=== PATIENT | female | born 1955 | race Caucasian/White ===

== ENCOUNTER 2016-07-28 14:23 | Inpatient (IN) | payer OTHER ==
[~2016-07-28] VITALS: Ht 165.1 cm; Wt 75.0 kg
[2016-07-28] MEDS ORDERED: AMOX500C (14:33)
[2016-07-28] MEDS ORDERED: NS 1,000 ML IV SCH ×2 (14:52→19:45)
[2016-07-28] MEDS ORDERED: ACETAMINOPHEN TAB 650MG DOSE (2X325MG) PO ONE (15:00)
[2016-07-28 15:38] LABS: BASO % 0.2 % (0.0-1.0); EOS # 0.2 K/mm3 (0.0-0.50); EOS % 0.7 % (0.0-3.0); LARGE UNSTAINED CELL # 0.2 K/mm3 (0.0-0.4); LARGE UNSTAINED CELL % 0.8 % (0.0-4.0); LYMPH # 0.6 K/mm3 (1.5-4.5); LYMPH % 2.6 % (24.0-44.0); MEAN CORPUSCULAR HEMOGLOBIN 32.2 pg (27.0-33.0); MEAN CORPUSCULAR HGB CONC 32.9 g/dl (32.0-36.5); MEAN CORPUSCULAR VOLUME 97.7 fl (80.0-96.0); MONO # 0.4 K/mm3 (0.0-0.8); MONO % 1.7 % (0.0-5.0); NEUTROPHILS # 20.2 K/mm3 (1.8-7.7); NEUTROPHILS % 94.1 % (36.0-66.0); PLATELET COUNT, AUTOMATED 269 k/mm3 (150-450); RED CELL DISTRIBUTION WIDTH 12.1 % (11.5-14.5); WHITE BLOOD COUNT 21.5 K/mm3 (4.0-10.0)
[2016-07-28 15:46] LABS: INR 1.21
[2016-07-28 16:04] LABS: CONTROL LINE MONO INT CTR LINE PRESENT
[2016-07-28 16:11] LABS: ALBUMIN 3.3 GM/DL (3.2-5.2); ALBUMIN/GLOBULIN RATIO 0.65 (1.00-1.93); ALKALINE PHOSPHATASE 137 U/L (45-117); ALT/SGPT 38 U/L (12-78); ANION GAP 11 MEQ/L (8-16); AST/SGOT 23 U/L (15-37); BILIRUBIN,DIRECT 0.3 MG/DL (0.0-0.2); BILIRUBIN,TOTAL 0.8 MG/DL (0.2-1.0); BLOOD UREA NITROGEN 20 MG/DL (7-18); CARBON DIOXIDE LEVEL 22 MEQ/L (21-32); CHLORIDE LEVEL 102 MEQ/L (98-107); CREATININE FOR GFR 1.07 MG/DL (0.55-1.02); GLOMERULAR FILTRATION RATE 55.3 (>45); GLUCOSE, FASTING 151 MG/DL (80-110); POTASSIUM SERUM 4.2 MEQ/L (3.5-5.1); SODIUM LEVEL 135 MEQ/L (136-145); TOTAL PROTEIN 8.4 GM/DL (6.4-8.2)
[2016-07-28] MEDS ORDERED: IBUPOTC PO (17:58)
[2016-07-28] MEDS ORDERED: VITMTA PO (17:58)
[2016-07-28] MEDS ORDERED: ACET50TAOT PO (17:58)
--- NOTE | 2016-07-28 19:14 | REP ---
CT brain without contrast: History: Fever and headache. No comparison brain imaging. CT findings: Digital lateral assistant real estate manager view is unremarkable. Bone window settings demonstrate an intact bony calvarium. Visualized paranasal sinuses are clear. On soft tissue window settings, the lateral, 3rd and 4th ventricles are normal in size and position. There is some physiologic calcification of the basal ganglia bilaterally. There is no evidence of intracranial hemorrhage. No infarct, mass, or extra-axial fluid collection is seen. Monson white differentiation pattern is normal. Impression: No acute intracranial lesion. Physiologic basal ganglia calcification noted incidentally. Otherwise negative. Signed by Hemanth Garcia MD 07/28/2016 07:45 P
[2016-07-28] MEDS ORDERED: ACETAMINOPHEN TAB 650MG DOSE (2X325MG) PO PRN (19:45)
[2016-07-28] MEDS ORDERED: ONDANSETRON 4MG/2ML VIAL (J2405) IV PRN (19:45)
[2016-07-28] MEDS ORDERED: predniSONE 10 MG TAB PO ONE (20:15)
--- NOTE | 2016-07-28 20:27 | HPEPDOC ---
Medical History and Physical Date of Admission 07/28/16 History and Physical PRIMARY CARE PROVIDER: ATTENDING: Dr. Alvarenga CHIEF COMPLAINT: Rash HISTORY OF PRESENT ILLNESS: This is a 58-year-old female past medical history of ulcerative colitis (not on any meds) who presents complaining of a rash. Patient states that she went to her oral surgeon for a left tooth extraction last Thursday, was given amoxicillin, and started to develop the rash on Thursday evening. Patient also complained of sore throats and nonproductive cough. Patient states the rash started on her palms spread to her chest, back, and then legs. Complained of low-grade temperature 100.2. Chills. Nausea. No diarrhea. Patient had spoken to her dentist on Thursday and was told to stop the antibiotic yesterday. Patient was also prescribed Benadryl. Patient states that since then the rash has progressively worsened for which she went to the urgent care center and referred to [facility]. Patient denies any chest pain/shortness of breath/palpitations. No nausea/ vomiting/abdominal pain this time. No prior rashes. No prior allergies. Patient's had no other medication exposures. No changes in her soaps or linen. No new perfumes. No sick contacts or recent travels. PAST MEDICAL HISTORY:As per HPI PAST SURGICAL HISTORY: Ileostomy, left carpal tunnel. SOCIAL HISTORY: Denies tobacco, alcohol, illicit drug use. FAMILY HISTORY:Non contributory ALLERGIES: Please see below. REVIEW OF SYSTEMS: HEENT: Denies sore throat/headache CARDIOVASCULAR: Denies chest pain/palpitations RESPIRATORY: No shortness of breath/cough GASTROINTESTINAL: denies nausea/vomiting GENITOURINARY: Denies dysuria/urinary urgency. MUSCULOSKELETAL: Denies myalgias/arthralgias NEUROLOGICAL: Denies any focal weakness Rest of ROS negative. HOME MEDICATIONS: Please see below. PHYSICAL EXAMINATION: Vitals: (see below) General: No acute distress, laying comfortably in bed. HEENT: Dry mucous membranes. No mucosal ulcers Neck: No JVD or lymphadenopathy Cardiac: RRR, No murmurs Pulm: Clear to auscultation b/l. No wheezing, rhonchi Abd: NT/ND + BS Ext: No edema or cyanosis Skin: Diffuse palpable purpura rash involving palms, arms, legs, chest, back. Blanchable. Tender. No areas of cellulitis. No involvement of soles. LABORATORY DATA: See below. IMAGING: CT Head 07/28/16 Impression: No acute intracranial lesion. Physiologic basal ganglia calcification noted incidentally. Otherwise negative. MICROBIOLOGY: Please see below. ASSESSMENT/PLAN: 1. Diffuse rash likely drug reaction from amoxicillin. Strep/influenza negative. The patient does have leukocytosis, mild elevation her lactic acid, elevated ESR. No source of infection. We'll hold off on antibiotics at this time. Started on prednisone and Benadryl. Also started on IV fluids. No mucosal ulcerations. No eosinophils. Questionable whether the patient does have a vasculitic picture given the history of ulcerative colitis. If rash does not improve, consider dermatology/infectious disease consult tomorrow for a possible biopsy. Chest x-ray negative. No dysuria. No diarrhea. No abdominal pain. We'll monitor CBC, ESR, CRP. F/u blood/sputum cx. 2. History of ulcerative colitis- controlled off medications DVT prophylaxis- out of bed. Patient will be followed by Dr. Amy Alvarenga 07/29/16 at 7 AM. Vital Signs Vital Signs Date Time Temp Pulse Resp B/P (MAP) Pulse Ox O2 Delivery O2 Flow Rate FiO2 07/28/16 18:07 99.5 16 07/28/16 17:53 88 94 07/28/16 17:35 99/73 (82) 07/28/16 14:33 Room Air Laboratory Data Labs 24H Laboratory Tests 2 07/28/16 15:21: White Blood Count 21.5H, Red Blood Count 4.76, Hemoglobin 15.3, Hematocrit 46.5 , Mean Corpuscular Volume 97.7H, Mean Corpuscular Hemoglobin 32.2, Mean Corpuscular Hemoglobin Concent 32.9, Red Cell Distribution Width 12.1, Platelet Count 269, Neutrophils (%) (Auto) 94.1H, Lymphocytes (%) (Auto) 2.6L, Monocytes (%) (Auto) 1.7, Eosinophils (%) (Auto) 0.7, Basophils (%) (Auto) 0.2, Neutrophils # (Auto) 20.2H, Lymphocytes # (Auto) 0.6L, Monocytes # (Auto) 0.4, Eosinophils # (Auto) 0.2, Basophils # (Auto) 0.0, Large Unclassified Cells % 0.8 , Large Unclassified Cells # 0.2, Prothrombin Time 15.4H, Prothromb Time International Ratio 1.21, Activated Partial Thromboplast Time 33.5, Anion Gap 11 , Glomerular Filtration Rate 55.3, Lactic Acid Level 2.5*H, Calcium Level 10.0, Aspartate Amino Transf (AST/SGOT) 23, Alanine Aminotransferase (ALT/SGPT) 38, Alkaline Phosphatase 137H, Total Bilirubin 0.8, Direct Bilirubin 0.3H, Total Protein 8.4H, Albumin 3.3, Albumin/Globulin Ratio 0.65L, Syphilis Serology NONREACTIVE, Monoscreen NEGATIVE 07/28/16 16:28: Urine Appearance CLOUDYH, Urine Color NICOLASA, Urine pH 6.0, Urine Specific [place] 1.020, Urine Protein 1+H, Urine Glucose (UA) NEGATIVE, Urine Ketones TRACEH, Urine Urobilinogen 0.2, Urine Bilirubin NEGATIVE, Urine Leukocyte Esterase 2+H, Urine Blood 1+H, Urine Nitrite NEGATIVE, Urine WBC (Auto) 74H, Urine RBC (Auto) 14H, Urine Hyaline Casts (Auto) 2, Urine Bacteria (Auto) 1+H, Urine Squamous Epithelial Cells 1, Urine Amorphous Sediment SMALLH, Urine Mucus (Auto) SMALL, Urine Sperm (Auto) 07/28/16 19:49: CBC/BMP Laboratory Tests 07/28/16 15:21 Red Blood Count 4.76, Mean Corpuscular Volume 97.7 H, Mean Corpuscular Hemoglobin 32.2, Mean Corpuscular Hemoglobin Concent 32.9, Red Cell Distribution Width 12.1, Neutrophils (%) (Auto) 94.1 H, Lymphocytes (%) (Auto) 2.6 L, Monocytes (%) (Auto) 1.7, Eosinophils (%) (Auto) 0.7, Basophils (%) (Auto ) 0.2, Neutrophils # (Auto) 20.2 H, Lymphocytes # (Auto) 0.6 L, Monocytes # ( Auto) 0.4, Eosinophils # (Auto) 0.2, Basophils # (Auto) 0.0 Microbiology Microbiology 07/28/16 Blood Culture, Received Pending 07/28/16 Blood Culture, Received Pending 07/28/16 Group A Streptococcus Screen (ARGELIA) - Final, Resulted 07/28/16 Group A Streptococcus Screen (ARGELIA), Resulted Pending 07/28/16 Influenza Virus Type A Antigen - Final, Complete 07/28/16 Influenza Virus Type B Antigen - Final, Complete 07/28/16 Urine Culture, Received Pending Home Medications Scheduled Multivitamins *[facility] STOCKED* (Thera M Plus *[facility] STOCKED*) 1 Tab Tab, 1 TAB PO DAILY Scheduled PRN Acetaminophen (Acetaminophen) 500 Mg Tab, 500 MG PO for PAIN Ibuprofen (Ibuprofen) 200 Mg Tab, 200 MG PO for PAIN Allergies Coded Allergies: No Known Drug Allergy (Verified Allergy, Unknown, 07/28/16) ERIN YAP MD July 28, 2016 20:27
[2016-07-28] MEDS ORDERED: IBUPROFEN 200 MG TAB PO PRN (20:30)
[2016-07-28 22:47] VITALS: BP 140/69
[2016-07-28] MEDS: diphenhydrAMINE INJ 50MG/ML VIAL (J1200) IV SCH (23:58)
[2016-07-29] VITALS (8 sets, daily range): BP systolic 110–122; BP diastolic 58–72
[2016-07-29] MEDS: diphenhydrAMINE INJ 50MG/ML VIAL (J1200) IV SCH ×4 (04:10→19:31)
[2016-07-29 05:52] LABS: BASO % 0.1 % (0.0-1.0); EOS % 0.2 % (0.0-3.0); LARGE UNSTAINED CELL # 0.2 K/mm3 (0.0-0.4); LARGE UNSTAINED CELL % 0.8 % (0.0-4.0); LYMPH # 0.7 K/mm3 (1.5-4.5); LYMPH % 2.8 % (24.0-44.0); MEAN CORPUSCULAR HEMOGLOBIN 33.5 pg (27.0-33.0); MEAN CORPUSCULAR VOLUME 98.7 fl (80.0-96.0); MONO # 0.5 K/mm3 (0.0-0.8); NEUTROPHILS # 24.6 K/mm3 (1.8-7.7); NEUTROPHILS % 94.1 % (36.0-66.0); PLATELET COUNT, AUTOMATED 270 k/mm3 (150-450); RED CELL DISTRIBUTION WIDTH 12.1 % (11.5-14.5); WHITE BLOOD COUNT 26.1 K/mm3 (4.0-10.0)
--- NOTE | 2016-07-29 06:11 | REP ---
Chest x-ray: Two views. History: Fever. Findings: EKG monitoring electrodes overlie the chest. The lungs are symmetrically aerated and clear. There are sutures in the upper abdomen. Left upper quadrant calcifications are noted. The pleural angles are sharp. Heart is not enlarged. The aorta is somewhat tortuous. There are mild degenerative changes in the thoracic spine. Impression: No active cardiopulmonary disease. Signed by Hemanth Garcia MD 07/29/2016 08:23 A
[2016-07-29 06:16] LABS: ALBUMIN 2.7 GM/DL (3.2-5.2); ALBUMIN/GLOBULIN RATIO 0.61 (1.00-1.93); ALKALINE PHOSPHATASE 119 U/L (45-117); ALT/SGPT 29 U/L (12-78); ANION GAP 9 MEQ/L (8-16); AST/SGOT 18 U/L (15-37); BILIRUBIN,TOTAL 0.5 MG/DL (0.2-1.0); BLOOD UREA NITROGEN 19 MG/DL (7-18); CALCIUM LEVEL 8.5 MG/DL (8.8-10.2); CARBON DIOXIDE LEVEL 22 MEQ/L (21-32); CHLORIDE LEVEL 108 MEQ/L (98-107); CREATININE FOR GFR 0.82 MG/DL (0.55-1.02); GLOMERULAR FILTRATION RATE > 60.0 (>45); GLUCOSE, FASTING 123 MG/DL (80-110); SODIUM LEVEL 139 MEQ/L (136-145); TOTAL PROTEIN 7.1 GM/DL (6.4-8.2)
[2016-07-29 07:29] LABS: ERYTHROCYTE SEDIMENTATION RATE 70 mm/hr (0-30)
[2016-07-29] MEDS: predniSONE 10 MG TAB PO SCH (08:54)
--- NOTE | 2016-07-29 11:53 | IPNPDOC ---
Subjective Date Seen The patient was seen on 07/29/16. Subjective Chief Complaint/HPI The patient is a 60-year-old female admitted with a reason for visit of Fever; Rash. Events since last encounter pt seen and examined, still has diffuse rash, not pruritic in nature, pt states it has not improved, she had a tmax of 100.3 overnight Constitutional: Reports: Fever Skin: Reports: Rash Objective Physical Examination General Exam: Positive: Alert, No Acute Distress Eye Exam: Positive: PERRLA, Conjunctiva & lids normal ENT Exam: Positive: Atraumatic Chest Exam: Positive: Clear to auscultation, Normal air movement Heart Exam: Positive: Rate Normal Abdomen Exam: Positive: Normal bowel sounds, Soft Extremity Exam: Positive: Normal pulses, Negative: Clubbing, Cyanosis, Edema Skin Exam: Positive: Rash Assessment /Plan Problems (1) Rash Status: Acute Problem Text: * pt was started on amoxicillin thursdayjuly 19 for dental work, she took 6 days of it and then last Thursdayjuly 26 she developed a rash that started over her hands then became diffuse * she called her dentist who told her to stop amoxicillin which she stopped on thursday and started taking benadryl, her rash worsed and she presented to the ER * she has been on prednisone, benadryl but still rash isn't improving * pt also has elevated CRP, SED rate and low grade temps with Tmax of 100.3 * will consult dr rodriguez (2) Fever Status: Acute Problem Text: * unkown etiology * maybe due to drug reaction * abnormal UA * blood/urine cultures pending * ID consult (3) History of ulcerative colitis Status: Chronic Response to Treatment: Stable Problem Text: * pt is on no medication regularly and sees no doctors Plan/VTE VTE Prophylaxis Ordered?: Yes VS, I&O, 24H, Fishbone Vital Signs/I&O Vital Signs Date Time Temp Pulse Resp B/P (MAP) Pulse Ox O2 Delivery O2 Flow Rate FiO2 07/29/16 11:42 98.9 79 18 110/66 (81) 94 Room Air I&O- Last 24 Hours up to 6 AM 07/29/16 05:59 Intake Total 80 ml Output Total 600 ml Balance -520 ml Laboratory Data 24H LABS Laboratory Tests 2 07/28/16 15:21: White Blood Count 21.5H, Red Blood Count 4.76, Hemoglobin 15.3, Hematocrit 46.5 , Mean Corpuscular Volume 97.7H, Mean Corpuscular Hemoglobin 32.2, Mean Corpuscular Hemoglobin Concent 32.9, Red Cell Distribution Width 12.1, Platelet Count 269, Neutrophils (%) (Auto) 94.1H, Lymphocytes (%) (Auto) 2.6L, Monocytes (%) (Auto) 1.7, Eosinophils (%) (Auto) 0.7, Basophils (%) (Auto) 0.2, Neutrophils # (Auto) 20.2H, Lymphocytes # (Auto) 0.6L, Monocytes # (Auto) 0.4, Eosinophils # (Auto) 0.2, Basophils # (Auto) 0.0, Large Unclassified Cells % 0.8 , Large Unclassified Cells # 0.2, Prothrombin Time 15.4H, Prothromb Time International Ratio 1.21, Activated Partial Thromboplast Time 33.5, Anion Gap 11 , Glomerular Filtration Rate 55.3, Lactic Acid Level 2.5*H, Calcium Level 10.0, Aspartate Amino Transf (AST/SGOT) 23, Alanine Aminotransferase (ALT/SGPT) 38, Alkaline Phosphatase 137H, Total Bilirubin 0.8, Direct Bilirubin 0.3H, Total Protein 8.4H, Albumin 3.3, Albumin/Globulin Ratio 0.65L, Syphilis Serology NONREACTIVE, Monoscreen NEGATIVE 07/28/16 16:28: Urine Appearance CLOUDYH, Urine Color NICOLASA, Urine pH 6.0, Urine Specific [place] 1.020, Urine Protein 1+H, Urine Glucose (UA) NEGATIVE, Urine Ketones TRACEH, Urine Urobilinogen 0.2, Urine Bilirubin NEGATIVE, Urine Leukocyte Esterase 2+H, Urine Blood 1+H, Urine Nitrite NEGATIVE, Urine WBC (Auto) 74H, Urine RBC (Auto) 14H, Urine Hyaline Casts (Auto) 2, Urine Bacteria (Auto) 1+H, Urine Squamous Epithelial Cells 1, Urine Amorphous Sediment SMALLH, Urine Mucus (Auto) SMALL, Urine Sperm (Auto) 07/28/16 19:49: Lactic Acid Followup at 4 Hours 2.2*H 07/29/16 05:18: White Blood Count 26.1H, Red Blood Count 4.16, Hemoglobin 13.9, Hematocrit 41.1 , Mean Corpuscular Volume 98.7H, Mean Corpuscular Hemoglobin 33.5H, Mean Corpuscular Hemoglobin Concent 34.0, Red Cell Distribution Width 12.1, Platelet Count 270, Neutrophils (%) (Auto) 94.1H, Lymphocytes (%) (Auto) 2.8L, Monocytes (%) (Auto) 2.0, Eosinophils (%) (Auto) 0.2, Basophils (%) (Auto) 0.1, Neutrophils # (Auto) 24.6H, Lymphocytes # (Auto) 0.7L, Monocytes # (Auto) 0.5, Eosinophils # (Auto) 0.0, Basophils # (Auto) 0.0, Large Unclassified Cells % 0.8 , Large Unclassified Cells # 0.2, Anion Gap 9, Glomerular Filtration Rate > 60.0 , Calcium Level 8.5L, Aspartate Amino Transf (AST/SGOT) 18, Alanine Aminotransferase (ALT/SGPT) 29, Alkaline Phosphatase 119H, Total Bilirubin 0.5, Total Protein 7.1, Albumin 2.7L, Albumin/Globulin Ratio 0.61L, Erythrocyte Sedimentation Rate 70H, Blood Urea Nitrogen 19H, Creatinine 0.82, Sodium Level 139, Potassium Level 4.0, Chloride Level 108H, Carbon Dioxide Level 22, Magnesium Level 2.0, C-Reactive Protein, Quantitative 14.20H CBC/BMP Laboratory Tests 07/28/16 15:21 Red Blood Count 4.76, Mean Corpuscular Volume 97.7 H, Mean Corpuscular Hemoglobin 32.2, Mean Corpuscular Hemoglobin Concent 32.9, Red Cell Distribution Width 12.1, Neutrophils (%) (Auto) 94.1 H, Lymphocytes (%) (Auto) 2.6 L, Monocytes (%) (Auto) 1.7, Eosinophils (%) (Auto) 0.7, Basophils (%) (Auto ) 0.2, Neutrophils # (Auto) 20.2 H, Lymphocytes # (Auto) 0.6 L, Monocytes # ( Auto) 0.4, Eosinophils # (Auto) 0.2, Basophils # (Auto) 0.0 07/29/16 05:18 Red Blood Count 4.16, Mean Corpuscular Volume 98.7 H, Mean Corpuscular Hemoglobin 33.5 H, Mean Corpuscular Hemoglobin Concent 34.0, Red Cell Distribution Width 12.1, Neutrophils (%) (Auto) 94.1 H, Lymphocytes (%) (Auto) 2.8 L, Monocytes (%) (Auto) 2.0, Eosinophils (%) (Auto) 0.2, Basophils (%) (Auto ) 0.1, Neutrophils # (Auto) 24.6 H, Lymphocytes # (Auto) 0.7 L, Monocytes # ( Auto) 0.5, Eosinophils # (Auto) 0.0, Basophils # (Auto) 0.0, Calcium Level 8.5 L , Aspartate Amino Transf (AST/SGOT) 18, Alanine Aminotransferase (ALT/SGPT) 29, Alkaline Phosphatase 119 H, Total Bilirubin 0.5, Total Protein 7.1, Albumin 2.7 L Microbiology Microbiology 07/28/16 Blood Culture, Received Pending 07/28/16 Blood Culture, Received Pending 07/28/16 Group A Streptococcus Screen (ARGELIA) - Final, Complete 07/28/16 Group A Streptococcus Screen (ARGELIA) - Final, Complete 07/28/16 Influenza Virus Type A Antigen - Final, Complete 07/28/16 Influenza Virus Type B Antigen - Final, Complete 07/28/16 Urine Culture, Received Pending JENNIFER MCGILL DO July 29, 2016 11:53
[2016-07-29] MEDS ORDERED: SLF 3 ML SYR IV PRN (14:00)
[2016-07-29] MEDS: SLF 3 ML SYR IV SCH ×2 (14:02→21:39)
[2016-07-29] MEDS: CLOBETASOL PROPIONATE EMOLLIENT 0.05% CR 60 GM TOP SCH (21:38)
[2016-07-29] MEDS: HYDROCORTISONE 1% OINTMENT 30GM EXT SCH (21:38)
[2016-07-30] MEDS: diphenhydrAMINE INJ 50MG/ML VIAL (J1200) IV SCH ×2 (02:58→08:04)
[2016-07-30 03:08] VITALS: BP 121/72
[2016-07-30 05:40] LABS: BASO # 0.1 K/mm3 (0.0-0.2); BASO % 0.2 % (0.0-1.0); EOS # 0.1 K/mm3 (0.0-0.50); EOS % 0.5 % (0.0-3.0); LARGE UNSTAINED CELL # 0.3 K/mm3 (0.0-0.4); LARGE UNSTAINED CELL % 1.1 % (0.0-4.0); LYMPH # 1.7 K/mm3 (1.5-4.5); LYMPH % 5.1 % (24.0-44.0); MEAN CORPUSCULAR HEMOGLOBIN 32.9 pg (27.0-33.0); MEAN CORPUSCULAR HGB CONC 33.8 g/dl (32.0-36.5); MEAN CORPUSCULAR VOLUME 97.3 fl (80.0-96.0); MONO # 1.1 K/mm3 (0.0-0.8); MONO % 3.8 % (0.0-5.0); NEUTROPHILS # 24.4 K/mm3 (1.8-7.7); NEUTROPHILS % 89.4 % (36.0-66.0); PLATELET COUNT, AUTOMATED 283 k/mm3 (150-450); RED CELL DISTRIBUTION WIDTH 12.5 % (11.5-14.5); WHITE BLOOD COUNT 27.3 K/mm3 (4.0-10.0)
[2016-07-30 05:56] LABS: ALBUMIN 2.5 GM/DL (3.2-5.2); ALBUMIN/GLOBULIN RATIO 0.58 (1.00-1.93); ALKALINE PHOSPHATASE 123 U/L (45-117); ALT/SGPT 33 U/L (12-78); ANION GAP 8 MEQ/L (8-16); AST/SGOT 26 U/L (15-37); BILIRUBIN,TOTAL 0.4 MG/DL (0.2-1.0); BLOOD UREA NITROGEN 24 MG/DL (7-18); CALCIUM LEVEL 8.3 MG/DL (8.8-10.2); CARBON DIOXIDE LEVEL 24 MEQ/L (21-32); CHLORIDE LEVEL 110 MEQ/L (98-107); CREATININE FOR GFR 0.88 MG/DL (0.55-1.02); GLOMERULAR FILTRATION RATE > 60.0 (>45); GLUCOSE, FASTING 87 MG/DL (80-110); POTASSIUM SERUM 4.1 MEQ/L (3.5-5.1); SODIUM LEVEL 142 MEQ/L (136-145); TOTAL PROTEIN 6.8 GM/DL (6.4-8.2)
[2016-07-30] MEDS: SLF 3 ML SYR IV SCH (06:35)
[2016-07-30 06:44] LABS: ERYTHROCYTE SEDIMENTATION RATE 15 mm/hr (0-30)
[2016-07-30 08:00] VITALS: BP 117/65
[2016-07-30] MEDS: CLOBETASOL PROPIONATE EMOLLIENT 0.05% CR 60 GM TOP SCH (08:04)
[2016-07-30] MEDS: HYDROCORTISONE 1% OINTMENT 30GM EXT SCH (08:04)
[2016-07-30] MEDS: predniSONE 10 MG TAB PO SCH (08:04)
[2016-07-30] MEDS ORDERED: HYDR1OI EXT (08:52)
[2016-07-30] MEDS ORDERED: CLOB5CR TOP (08:52)
--- NOTE | 2016-07-30 11:17 | CR ---
DATE OF CONSULTATION: 07/29/2016 CONSULTATION REPORT FOR: Dr. Alvarenga REASON FOR CONSULTATION: For evaluation of fever and rash. HISTORY OF PRESENT ILLNESS: Mrs. Strickland is a pleasant 60-year-old female with no significant past medical history except for ulcerative colitis status post colectomy many years ago, over 40 years ago, who presents with a rash and a fever. The patient had a left upper molar extraction last Thursday done by Dr. Borden. The patient was given amoxicillin as there was an infection in the tooth. She developed a rash about five days after starting antibiotic which was on Thursday. She called the dentist who told her to stop taking the antibiotic, but then she developed a sore throat and a cough. The rash got worse involving her palms, chest, back, and legs. It was pruritic. She had a low-grade temperature with chills and nausea but no vomiting or diarrhea. The patient came to the emergency room. She had a fever, a white count of 21,000, and therefore was admitted to the hospital. The patient states that since the rash had progressively worsened, she got worried and went to the urgent care who sent her to [facility] (ER) . She had no chest pain. No shortness of breath. She had some itching around the eyes but no involvement of the eyes. She has no oral ulcers. The patient has no prior penicillin allergy. She does not take medication. She does not have a primary care provider. She had no change in perfumes or soaps. PAST MEDICAL HISTORY: Ulcerative colitis status post colectomy, had an ileostomy many years ago. PAST SURGICAL HISTORY: Colectomy and ileostomy, left carpal tunnel surgery. SOCIAL HISTORY: No tobacco, alcohol or illicit drug use. She lives alone. FAMILY HISTORY: Nonrevealing. ALLERGIES: AMOXICILLIN. REVIEW OF SYSTEMS: She had a sore throat but no headache or neck stiffness. No sinus tenderness. No chest pain or palpitations. No shortness of breath. She had a nonproductive cough. She had some nausea but no vomiting, dysuria, or urinary urgency. MEDICATIONS: - prednisone 70 mg by mouth daily started on 07/29/2016 - Benadryl 25 mg IV every six hours - Motrin 200 mg by mouth every four hours as needed for fevers - Tylenol as needed - Zofran as needed The patient received prednisone 30 mg times one dose on 07/28/2016. IMAGING STUDIES: Head CT did not show any acute finding but there was physiologic basal ganglia classification noted. Chest x-ray showed no acute infiltrate. PHYSICAL EXAMINATION: On physical examination, pleasant female in no acute distress. Temperature is 100, pulse 87, respirations 18, blood pressure 122/61, oxygen saturation 95% on room air. HEART: Normal S1, S2. No murmurs, rubs or gallops. LUNGS: Clear. No wheezes, rales, or rhonchi. ABDOMEN: Soft, nontender. No visceromegaly. BACK: No costovertebral angle (CVA) or lumbosacral tenderness. EXTREMITIES: No clubbing, cyanosis or edema. No calf tenderness. HEENT: Oropharynx dry mucosa but no ulcers. Lips are slightly dry but no lesions. Periorbital rash with dryness and scaling. Eyes are not erythematous. NEUROLOGIC: Examination is intact. SKIN: She has vesicular, warm rash involving the whole body, especially is confluent over the back, more circular on the arms and abdomen, involving the thighs it is blanching. There is no purpura. There are no oral lesions and no eye lesions. LABORATORY DATA: White count was 21,000 on admission, 26,000 today after she received steroids, hemoglobin 13.9, hematocrit 41.1, platelets 270, 94% neutrophils, 2% lymphocytes, 2% monocytes, ESR 70. Sodium 139, potassium 4, chloride 108, bicarbonate 22, BUN 19, creatinine 0.82, glucose 123, lactic acid was 2.5 on admission, 2.2 four-hour followup, calcium 8.5, magnesium 2, bilirubin 0.5, AST 18, ALT 29, alkaline phosphatase 119, CRP 14.2, total protein 7.1, albumin 7.1. Group A Streptococcus was negative. Influenza was negative. Blood cultures two sets are negative and urine culture is negative. Urinalysis had 74 white cells and 14 red cells with +2 leukocyte esterase. IMPRESSION: This is a 60-year-old female who went to the dentist about a week prior to admission, was given amoxicillin for a dental infection, developed five days later a diffuse macular rash with fever, sore throat, came to the emergency room, had significant leukocytosis which has worsened on steroids, but the patient clinically is doing well except for the fever. She denies any sore throat currently or cough. Workup has been fairly negative except for elevated white count and sedimentation rate. The patient has been on prednisone, although she does not have any lung involvement wheezing, or shortness of breath, she has diffuse skin involvement. PLAN: Start hydrocortisone ointment around her eyes twice a day, clobetasol ointment on her skin. We could discontinue prednisone. I did discuss the case with Dr. Melissa Loera and sent her some pictures of the rash after consent from the patient. I have discussed the case with Dr. Alvarenga. If the patient is afebrile tomorrow, she could be discharged home with steroid creams. Continue Benadryl.
--- NOTE | 2016-07-30 22:00 | DSES ---
DATE OF ADMISSION: 07/28/2016 DATE OF DISCHARGE: 07/30/2016 REASON FOR ADMISSION: 1. Rash and fever. 2. History of ulcerative colitis. HISTORY OF PRESENT ILLNESS: The patient is a 60-year-old female with no known primary care provider, presented to the emergency room complaining of a rash that started on Thursday a day prior to arrival. The patient stated that a week ago she had a tooth extraction and was given amoxicillin, she had it for 6 days and started to develop a rash Thursday evening. The patient contacted her dentist who told her to stop the antibiotics. However, the following day rash continued to worsen, starting with her hands and then spread all over her body. She also started having low grade temperatures at that time. She went to urgent care clinic who referred her to the hospital. In the hospital the patient was started on prednisone. She was given Benadryl and admitted under hospitalist service. HOSPITAL COURSE: The following day the patient still had fever, was nonpruritic, she had no respiratory symptoms. No other complaints. She had a maximum temperature (T-max) of 100.3. Dr. Mccarthy was consulted. She had evaluated the patient and felt that her rash was likely secondary to a drug reaction as well as her fever. She was started on hydrocortisone ointment around her eyes and clobetasol ointment for her skin. The prednisone was discontinued. Dr. Melissa Loera was consulted over the phone and she recommended the patient to go home and followup with primary care provider, and continue on steroid cream. DISCHARGE INSTRUCTIONS: The patient was set up with a primary care provider. She was discharged home. Diet regular. Activity is as tolerated. DISCHARGE MEDICATIONS: Include: - clobetasol one dose cream for her skin topically - hydrocortisone cream for around the eyes - multivitamin one tablet daily. DISCHARGE CONDITION: Stable.
== END 2016-07-30 11:27 | disposition home or self-care (01) | DRG 607 ==
LOC: EDBD 14:23 → M ED 16:44 → M ED INP 19:35 → M PCU 22:35
PROVIDERS: ADMIT Internal Medicine; ATTEND Internal Medicine
DX: L27.0 Generalized skin eruption due to drugs and medicaments taken internally (principal); T36.0X5A Adverse effect of penicillins, initial encounter; Z90.49 Acquired absence of other specified parts of digestive tract; D72.829 Elevated white blood cell count, unspecified; R50.9 Fever, unspecified; Z93.2 Ileostomy status

== ENCOUNTER → 2016-07-28 | Outpatient (CLI) | payer OTHER ==
[~2016-07-28] MED LIST: ACET50TAOT PO; AMOX500C; CLOB5CR TOP; HYDR1OI EXT; IBUPOTC PO; VITMTA PO
[2016-07-28 13:05] LABS: MEAN CORPUSCULAR HGB CONC 34.1 g/dl (32.0-36.5); MEAN CORPUSCULAR VOLUME 96.8 fl (80.0-96.0); PLATELET COUNT, AUTOMATED 266 k/mm3 (150-450); RED CELL DISTRIBUTION WIDTH 12.2 % (11.5-14.5); WHITE BLOOD COUNT 20.6 K/mm3 (4.0-10.0)
[2016-07-28 13:16] LABS: ALBUMIN 3.4 GM/DL (3.2-5.2); ALBUMIN/GLOBULIN RATIO 0.79 (1.00-1.93); BILIRUBIN,TOTAL 0.8 MG/DL (0.2-1.0); CALCIUM LEVEL 9.7 MG/DL (8.8-10.2); CREATININE FOR GFR 1.22 MG/DL (0.55-1.02); GLOMERULAR FILTRATION RATE 47.5 (>45); POTASSIUM SERUM 4.2 MEQ/L (3.5-5.1); TOTAL PROTEIN 7.7 GM/DL (6.4-8.2)
[2016-07-28 14:05] LABS: ERYTHROCYTE SEDIMENTATION RATE 57 mm/hr (0-30)
== END ==
LOC: M WUC 10:47
PROVIDERS: ATTEND Physician Assistant
DX: R21 Rash and other nonspecific skin eruption (principal)

== ENCOUNTER → 2018-08-12 | Outpatient (REF) | payer OTHER ==
[~2018-08-12] MED LIST changes: +ACET500T15 PO; -ACET50TAOT PO
== END ==
LOC: M LAB REF 13:03
PROVIDERS: ATTEND Nurse Practitioner Family
DX: Z01.89 Encounter for other specified special examinations (principal)

== ENCOUNTER → 2020-10-26 | Outpatient (CLI) | payer MEDICARE, OTHER ==
[~2020-10-26] MED LIST changes: -HYDR1OI EXT; +HYDR28OI EXT
--- NOTE | 2020-10-26 10:48 | REPMRS ---
Patient History The patient states she has not had a clinical breast exam in over a year. Patient is postmenopausal and had first child at age 48. No known family history of cancer. Right breast stereo bx 09/29/16 in [place] No breast complaints today Patient signed the MRS sheet Patient states she had both Moderna vaccines in June but not sure of the dates, both in the left arm Priors from [place] Patient also had a benign stereo bx on the right breast in [facility] 09/29/16 Priors on PACS Patient Identification Verified Digital Woman Screen Mammo: October 26, 2020 - Exam #: [id number] Bilateral CC and MLO view(s) were taken. Technologist: Pastora Horn, Technologist Prior study comparison: October 10, 2019, bilateral digital mammo screening bilat, performed at [facility]. October 06, 2018, bilateral digital mammo screening bilat, performed at [facility]. FINDINGS: There are scattered fibroglandular densities. Screening. Digital screening (2D) mammography was performed bilaterally in the CC and MLO projections. Additionally, breast tomosynthesis (3D mammography) was performed bilaterally in the CC and MLO projections. Todays exam was compared to the prior exam/exams. By history, the patient has no complaints of a palpable breast abnormality or other significant breast complaints. The breasts are unchanged in size and shape. There are no carly-soft tissue densities or spiculated masses. There is no internal architectural distortion. There are no suspicious carly-calcific clusters. Skin thickening or nipple retraction is not present. IMPRESSION: BI-RADS Category 2- Benign Findings. There is no evidence of malignant alteration of the breasts. Followup examination recommended in one year. The Volpara volumetric breast density category is B, there are scattered areas of fibroglandular densities. This mammogram was read with the assistance of [employer],an FDA approved computer aided detection system for mammography. The lifetime Tyrer-Cuzick score is 8.3 % Negative x-ray reports should not delay surgical consultation if a dominant or clinically suspicious mass is present. Not all breast cancers can be identified by mammography. Therefore, we recommend that you continue to perform regular breast self-examination and physical examination and then promptly contact your physician of any concerns or changes. Adenosis and dense breasts may obscure an underlying neoplasm. Assessment: BI-RADS/ACR category 2 mammogram. Benign Findings. Recommendation Routine screening mammogram of both breasts in 1 year. Electronically Signed By: Diego Briseno DO 10/26/20 1044
== END ==
LOC: M WHC 09:32
PROVIDERS: ATTEND Physician Assistant Medical
DX: Z12.31 Encounter for screening mammogram for malignant neoplasm of breast (principal); Z13.820 Encounter for screening for osteoporosis

== ENCOUNTER → 2021-11-28 | Outpatient (CLI) | payer OTHER ==
[~2021-11-28] MED LIST changes: -HYDR28OI EXT; +HYDR28OI8 EXT
== END ==
LOC: M WHC 12:43
PROVIDERS: ATTEND Physician Assistant Medical
DX: Z12.31 Encounter for screening mammogram for malignant neoplasm of breast (principal)

== ENCOUNTER → 2022-12-03 | Outpatient (CLI) | payer MEDICARE, OTHER ==
[~2022-12-03] MED LIST changes: +HYDR28OI EXT; -HYDR28OI8 EXT
== END ==
LOC: M WHC 14:06
PROVIDERS: ATTEND Physician Assistant Medical
DX: Z12.31 Encounter for screening mammogram for malignant neoplasm of breast (principal)

== ENCOUNTER → 2023-12-08 | Outpatient (CLI) | payer MEDICARE, OTHER | LOC: M WHC 11:07 | PROVIDERS: ATTEND Physician Assistant Medical | DX: Z12.31 Encounter for screening mammogram for malignant neoplasm of breast (principal); Z13.820 Encounter for screening for osteoporosis; Z80.3 Family history of malignant neoplasm of breast; M85.89 Other specified disorders of bone density and structure, multiple sites; R92.313 Mammographic fatty tissue density, bilateral breasts ==